=== PATIENT | male | born 1955 | race Caucasian/White ===

== ENCOUNTER → 2017-02-06 | Outpatient (REF) | payer OTHER | LOC: M SFHCPLAZ 13:50 | PROVIDERS: ATTEND Nurse Practitioner Adult Health | DX: Z00.00 Encounter for general adult medical examination without abnormal findings (principal); Z53.9 Procedure and treatment not carried out, unspecified reason ==

== ENCOUNTER → 2018-06-04 | Outpatient (CLI) | payer OTHER ==
[~2018-06-04] MED LIST: GASTROGRAFIN SOLUTION 30ML (Q9963) As Ordered; ISOVUE-370 76% 100ML VIAL (Q9967) As Ordered
== END ==
LOC: M RAD 12:46
DX: R19.00 Intra-abdominal and pelvic swelling, mass and lump, unspecified site (principal); R91.8 Other nonspecific abnormal finding of lung field; K57.30 Diverticulosis of large intestine without perforation or abscess without bleeding
CPT/HCPCS: Q9963

== ENCOUNTER → 2018-06-11 | Outpatient (REF) | payer OTHER ==
[2018-06-11 18:38] LABS: HEMOGLOBIN 13.6 g/dl (13.5-17.5); MEAN CORPUSCULAR HEMOGLOBIN 32.1 pg (27.0-33.0); MEAN CORPUSCULAR VOLUME 94.3 fl (80.0-96.0); PLATELET COUNT, AUTOMATED 194 10^3/uL (150-450); RED BLOOD COUNT 4.24 10^6/uL (4.30-6.10); RED CELL DISTRIBUTION WIDTH 12.9 % (11.5-14.5); WHITE BLOOD COUNT 6.7 10^3/uL (4.0-10.0)
[2018-06-11 18:42] LABS: ESTIMATED AVERAGE GLUCOSE 117 MG/DL (60-110); HEMOGLOBIN A1c 5.7 %
[2018-06-11 19:21] LABS: ALBUMIN 4.2 GM/DL (3.2-5.2); ALBUMIN/GLOBULIN RATIO 1.62 (1.00-1.93); ALKALINE PHOSPHATASE 88 U/L (45-117); ALT/SGPT 34 U/L (12-78); ANION GAP 8 MEQ/L (8-16); AST/SGOT 23 U/L (7-37); BILIRUBIN,TOTAL 0.7 MG/DL (0.2-1.0); BLOOD UREA NITROGEN 12 MG/DL (7-18); CARBON DIOXIDE LEVEL 29 MEQ/L (21-32); CHLORIDE LEVEL 104 MEQ/L (98-107); CHOLESTEROL LEVEL 151 MG/DL (<200); CHOLESTEROL RISK RATIO 3.682 (<5); CREATININE FOR GFR 0.91 MG/DL (0.70-1.30); GLOMERULAR FILTRATION RATE > 60.0 (>49); GLUCOSE, FASTING 81 MG/DL (70-100); HDL CHOLESTEROL 41 MG/DL (>40); LDL CHOLESTEROL 97 MG/DL (<100); NON-HDL-C 110 MG/DL; PSA SCREENING 0.74 NG/ML (< 4.0); SODIUM LEVEL 141 MEQ/L (136-145); TOTAL PROTEIN 6.8 GM/DL (6.4-8.2); TRIGLYCERIDES LEVEL 67 MG/DL (<150)
== END ==
LOC: M SFHCPLAZ 15:33
DX: I10 Essential (primary) hypertension (principal); Z83.3 Family history of diabetes mellitus; Z12.5 Encounter for screening for malignant neoplasm of prostate
CPT/HCPCS: 84443

== ENCOUNTER 2018-09-18 06:38 | Day surgery (SDC) | payer OTHER ==
[~2018-09-18] VITALS: Ht 167.6 cm; Wt 68.0 kg
[~2018-09-18 06:38] MED LIST changes: -GASTROGRAFIN SOLUTION 30ML (Q9963) As Ordered; -ISOVUE-370 76% 100ML VIAL (Q9967) As Ordered; +LOSA100T50 PO
[2018-09-18] MEDS ORDERED: PROPOFOL 200 MG/20 ML VIAL As Ordered ONE (07:02)
[2018-09-18] MEDS ORDERED: NS 1,000 ML IV ONE (07:30)
--- NOTE | 2018-09-18 08:30 | ROOR ---
Patient Name: Eusebio Branch Procedure Date: 09/18/2018 7:30 AM Date of : 1955 Age: 63 Room: [facility] Gender: Male Note Status: Finalized Procedure: Colonoscopy Indications: Screening for colorectal malignant neoplasm Providers: Cristobal Cantor MD Referring MD: Laura Sumner NP Requesting Provider: Medicines: Monitored Anesthesia Care Complications: No immediate complications. Procedure: Pre-Anesthesia Assessment: - Prior to the procedure, a History and Physical was performed, and patient medications and allergies were reviewed. The patient is competent. The risks and benefits of the procedure and the sedation options and risks were discussed with the patient. All questions were answered and informed consent was obtained. Patient identification and proposed procedure were verified by the physician, the nurse and the anesthesiologist in the procedure room. Mental Status Examination: alert and oriented. Airway Examination: normal oropharyngeal airway and neck mobility. Respiratory Examination: clear to auscultation. CV Examination: normal. Prophylactic Antibiotics: The patient does not require prophylactic antibiotics. Prior Anticoagulants: The patient has taken no previous anticoagulant or antiplatelet agents. ASA Grade Assessment: II - A patient with mild systemic disease. After reviewing the risks and benefits, the patient was deemed in satisfactory condition to undergo the procedure. The anesthesia plan was to use monitored anesthesia care (MAC). Immediately prior to administration of medications, the patient was re-assessed for adequacy to receive sedatives. The heart rate, respiratory rate, oxygen saturations, blood pressure, adequacy of pulmonary ventilation, and response to care were monitored throughout the procedure. The physical status of the patient was re-assessed after the procedure. The Colonoscope was introduced through the anus and advanced to the terminal ileum, with identification of the appendiceal orifice and IC valve. The colonoscopy was performed without difficulty. The patient tolerated the procedure well. The quality of the bowel preparation was good. The terminal ileum, ileocecal valve, appendiceal orifice, and rectum were photographed. Scope insertion time was 5 minutes. Scope withdrawal time was 20 minutes. The total duration of the procedure was 25 minutes. Findings: The perianal and digital rectal examinations were normal. The terminal ileum appeared normal. A 10 mm polyp was found in the descending colon. The polyp was sessile. The polyp was removed with a hot snare. Resection and retrieval were complete. Verification of patient identification for the specimen was done by the physician and nurse using the patient's name, date and medical record number. Estimated blood loss was minimal. Two pedunculated polyps were found in the recto-sigmoid colon. The polyps were 10 to 30 mm in size. These polyps were removed with a hot snare. Resection and retrieval were complete. To close a defect after polypectomy, five hemostatic clips were successfully placed. There was no bleeding at the end of the procedure. A few small-mouthed diverticula were found in the sigmoid colon. There was no evidence of diverticular bleeding. Non-bleeding external and internal hemorrhoids were found during retroflexion. The hemorrhoids were medium-sized. Impression: - The examined portion of the ileum was normal. - One 10 mm polyp in the descending colon, removed with a hot snare. Resected and retrieved. - Two 10 to 30 mm polyps at the recto-sigmoid colon, removed with a hot snare. Resected and retrieved. Clips were placed. - Moderate diverticulosis in the sigmoid colon. There was no evidence of diverticular bleeding. - Non-bleeding external and internal hemorrhoids. Recommendation: - Patient has a contact number available for emergencies. The signs and symptoms of potential delayed complications were discussed with the patient. Return to normal activities tomorrow. Written discharge instructions were provided to the patient. - Clear liquid diet for 1 day, then advance as tolerated to resume regular diet. - Continue present medications. - Await pathology results. - Repeat colonoscopy in 1 year for surveillance based on pathology results. - Return to GI clinic in 1 year. - Return to primary care physician. Cristobal Cantor MD Cristobal Cantor MD 09/18/2018 8:29:47 AM This report has been signed electronically. Number of Addenda: 0 Note Initiated On: 09/18/2018 7:30 AM Estimated Blood Loss: Estimated blood loss was minimal.
[2018-09-18 08:49] VITALS: BP 125/93
== END 2018-09-18 08:49 | disposition home or self-care (01) ==
LOC: M OPP 06:38
PROVIDERS: ATTEND Internal Medicine Gastroenterology
DX: Z12.11 Encounter for screening for malignant neoplasm of colon (principal); D12.4 Benign neoplasm of descending colon; D12.7 Benign neoplasm of rectosigmoid junction; K57.30 Diverticulosis of large intestine without perforation or abscess without bleeding; K64.8 Other hemorrhoids; R12 Heartburn; F17.210 Nicotine dependence, cigarettes, uncomplicated; I10 Essential (primary) hypertension; Z83.3 Family history of diabetes mellitus; Z80.1 Family history of malignant neoplasm of trachea, bronchus and lung; Z82.49 Family history of ischemic heart disease and other diseases of the circulatory system; Z79.899 Other long term (current) drug therapy

== ENCOUNTER → 2018-12-01 | Outpatient (CLI) | payer OTHER ==
--- NOTE | 2018-12-01 16:27 | REP ---
Low-dose noncontrast chest CT: History: Tobacco use. Lung cancer screening. Comparison chest x-ray April 10, 2010. CT findings: Preliminary digital base brander radiograph is unremarkable. There is a non solid 9 mm nodule in the right lower lobe posteriorly on page 68 of 100 in today's study. There is linear fibrosis in the lingula. No other abnormal pulmonary parenchymal opacity is seen. There are old healed rib fractures on the right. There is mild vascular calcification including in the left coronary artery. Impression: Lung RADS category 3 examination. Recommend 6-month follow-up CT study. Electronically Signed by Roque Loyola MD 12/02/2018 11:08 A
== END ==
LOC: M RAD 15:41
PROVIDERS: ATTEND Nurse Practitioner Adult Health
DX: Z12.2 Encounter for screening for malignant neoplasm of respiratory organs (principal); R91.8 Other nonspecific abnormal finding of lung field; Z72.0 Tobacco use

== ENCOUNTER → 2019-02-15 | Outpatient (REF) | payer MEDICAID, OTHER ==
[2019-02-15 13:15] LABS: ALBUMIN 3.8 GM/DL (3.2-5.2); ALT/SGPT 32 U/L (12-78); BILIRUBIN,TOTAL 0.4 MG/DL (0.2-1.0); BLOOD UREA NITROGEN 15 MG/DL (7-18); CALCIUM LEVEL 9.1 MG/DL (8.8-10.2); CARBON DIOXIDE LEVEL 31 MEQ/L (21-32); CHLORIDE LEVEL 105 MEQ/L (98-107); CREATININE FOR GFR 1.01 MG/DL (0.70-1.30); GLOMERULAR FILTRATION RATE > 60.0 (>49); GLUCOSE, FASTING 74 MG/DL (70-100); POTASSIUM SERUM 4.7 MEQ/L (3.5-5.1); SODIUM LEVEL 140 MEQ/L (136-145); TOTAL PROTEIN 7.3 GM/DL (6.4-8.2)
== END ==
LOC: M SFHCPLAZ 09:10
PROVIDERS: ATTEND Nurse Practitioner Adult Health
DX: I10 Essential (primary) hypertension (principal); Z83.3 Family history of diabetes mellitus

== ENCOUNTER → 2019-02-23 | Outpatient (CLI) | payer OTHER ==
--- NOTE | 2019-02-23 17:44 | REP ---
Clinical: New onset headaches . Comparison: None . Findings: The ventricles, sulci, and cisterns are normal in position and appearance. Pérez-white differentiation is maintained. No acute intracranial hemorrhage, mass/mass effect, pathology or trauma/injury. No evidence for acute infarction. No extra-axial fluid collection. Calvarium is intact. Paranasal sinuses and mastoid air cells are clear. Impression: Normal noncontrast head CT. No evidence for acute intracranial pathology or trauma/injury. Electronically Signed by Floyd Degroot MD 02/23/2019 05:35 P
== END ==
LOC: M RAD 17:18
PROVIDERS: ATTEND Nurse Practitioner Adult Health
DX: R51 Headache (principal); Z87.828 Personal history of other (healed) physical injury and trauma

== ENCOUNTER 2019-05-20 11:58 | Inpatient (IN) | payer OTHER ==
[~2019-05-20] VITALS: Ht 165.1 cm; Wt 73.6 kg
[2019-05-20] MEDS ORDERED: FLUO20CA20 PO (12:11)
[2019-05-20] MEDS ORDERED: BUPR150T3 PO (12:11)
[2019-05-20] MEDS ORDERED: ceFAZolin SOD 1 GM in D5W MINI-BAG PLUS 50 ML IV ONE (12:30)
[2019-05-20] MEDS ORDERED: ADACEL/BOOSTRIX VACCINE (DIPHTH/PERTUSS/ACELL/TETANUS)0.5ML SYR (90715) IM ONE (12:30)
[2019-05-20] MEDS ORDERED: MORPHINE 2 MG/ML 1ML VIAL (J2270) IV PRN (12:30)
[2019-05-20] MEDS ORDERED: NS 1,000 ML IV ONE (12:30)
[2019-05-20] MEDS ORDERED: ONDANSETRON 4MG/2ML VIAL (J2405) IV ONE (12:30)
[2019-05-20 12:47] LABS: BASO % 0.2 % (0.0-1.0); EOS # 0.2 10^3/uL (0.0-0.5); EOS % 1.6 % (0.0-3.0); HEMATOCRIT 38.3 % (42.0-52.0); HEMOGLOBIN 13.3 g/dl (13.5-17.5); LYMPH # 1.4 10^3/uL (1.5-5.0); LYMPH % 10.2 % (24.0-44.0); MEAN CORPUSCULAR HGB CONC 34.7 g/dl (32.0-36.5); MONO # 1.1 10^3/uL (0.0-0.8); MONO % 7.9 % (0.0-5.0); NEUTROPHILS # 11.2 10^3/uL (1.5-8.5); PLATELET COUNT, AUTOMATED 249 10^3/uL (150-450); RED BLOOD COUNT 4.03 10^6/uL (4.30-6.10); WHITE BLOOD COUNT 14.1 10^3/uL (4.0-10.0)
--- NOTE | 2019-05-20 13:34 | REP ---
Right knee four views: There are no comparisons. There is air within the soft tissues above the knee. I suspect some of this area is interarticular. There is is compatible with laceration. There are calcific densities superior to the patella which may represent a avulsion fractures or foreign bodies. This raises the possibility of a avulsion of the quadriceps tendon. No other fractures are identified. Mineralization is normal. There are no other calcifications or foreign bodies. Impression: Soft tissue and intra-articular air suggestive of laceration. Calcifications above the patella compatible with a avulsions, possibly avulsion of the quadriceps tendon. Electronically Signed by Sushil Spear MD 05/20/2019 01:24 P
[2019-05-20 13:38] LABS: ALBUMIN 3.4 GM/DL (3.2-5.2); BILIRUBIN,DIRECT 0.1 MG/DL (0.0-0.2); BILIRUBIN,TOTAL 0.5 MG/DL (0.2-1.0); TOTAL PROTEIN 5.8 GM/DL (6.4-8.2)
--- NOTE | 2019-05-20 13:57 | REP ---
CHEST, SINGLE VIEW: There is no evidence of acute infiltrate. No pleural effusion is seen. The heart is normal in size. The mediastinal silhouette is unremarkable. The visualized osseous structures are intact. There are old healed fractures of several right ribs. IMPRESSION: No acute pulmonary disease. Electronically Signed by Sushil Pérez MD 05/20/2019 05:39 P
--- NOTE | 2019-05-20 13:57 | REP ---
LEFT SHOULDER, THREE VIEWS: There is no evidence of an acute fracture, dislocation or intrinsic bone disease. IMPRESSION: No fracture or dislocation. Electronically Signed by Sushil Pérez MD 05/20/2019 05:39 P
--- NOTE | 2019-05-20 14:05 | REP ---
LEFT FEMUR, AP AND LATERAL: There is no evidence of an acute fracture, dislocation or intrinsic bone disease. IMPRESSION: No fracture or dislocation. Electronically Signed by Sushil Pérez MD 05/20/2019 05:39 P
[2019-05-20] MEDS ORDERED: LIDOCAINE 1% MDV 20ML VIAL As Ordered ONE (14:21)
--- NOTE | 2019-05-20 15:00 | REP ---
CT RIGHT KNEE: Axial CT right knee performed with sagittal and coronal reconstruction images. Comminuted focal fracture is noted of the peripheral anterior lateral femoral condyle. Multiple small fracture fragments are displaced superiorly. Tibia, fibula and patellar are intact. There is overlying soft tissue disruption with scattered air in the soft tissues. Mild air extends into the patellofemoral joint and suprapatellar bursa. There is mild fluid in these regions as well. There is no dislocation. Electronically Signed by Sushil Pérez MD 05/20/2019 05:42 P
[2019-05-20] MEDS ORDERED: LIDOCAINE 1% MDV 20ML VIAL IM ONE (15:15)
--- NOTE | 2019-05-20 16:21 | REP ---
ULTRASOUND LEFT THIGH SOFT TISSUES: Real-time sonographic evaluation of the left thigh soft tissues performed at a site of pain and swelling. No mass or fluid collection is seen at that location. Electronically Signed by Sushil Pérez MD 05/20/2019 05:54 P
[2019-05-20] MEDS ORDERED: BUPIVACAINE HCL 0.5% 30 ML VIAL As Ordered ONE (16:47)
[2019-05-20] MEDS ORDERED: MIDAZOLAM INJ 2 MG/2 ML VIAL (J2250) As Ordered ONE (17:24)
[2019-05-20] MEDS ORDERED: fentaNYL 100 MCG/2 ML INJECTION (J3010) As Ordered ONE ×2 (17:24→18:43)
[2019-05-20] MEDS ORDERED: ceFAZolin 2 GM/D5W 50 ML IV BAG (J0690 PER 500MG) As Ordered ONE (17:25)
[2019-05-20] MEDS ORDERED: propofoL 200 MG/20 ML VIAL As Ordered ONE (17:25)
[2019-05-20] MEDS ORDERED: LIDOCAINE 2% INJ 100 MG/5 ML SDV (FOR ANES.) As Ordered ONE (17:25)
[2019-05-20] MEDS ORDERED: SUGAMMADEX SODIUM 500 MG/5 ML VIAL (BRIDION) As Ordered ONE (17:34)
[2019-05-20] MEDS ORDERED: ROCURONIUM BROMIDE 50 MG/5 ML VIAL As Ordered ONE (17:34)
[2019-05-20] MEDS ORDERED: SUCCINYLCHOLINE 100 MG/5 ML SYRINGE (J0330) As Ordered ONE (17:34)
[2019-05-20] MEDS ORDERED: dexameTHASONE 4 MG/ML 1ML VIAL (J1100) As Ordered ONE (17:36)
[2019-05-20] MEDS ORDERED: ONDANSETRON 4MG/2ML VIAL (J2405) As Ordered ONE (17:36)
[2019-05-20] MEDS ORDERED: ACETAMINOPHEN 1000MG 100ML IV BTL (OFIRMEV) (J0131 PER 10MG) As Ordered ONE (18:43)
[2019-05-20] MEDS ORDERED: fentaNYL 100 MCG/2 ML INJECTION (J3010) IV PRN (20:00)
[2019-05-20] MEDS ORDERED: PERCOCET 5MG/325MG TAB PO PRN ×2 (20:00→20:45)
[2019-05-20] MEDS ORDERED: HYDROMORPHONE HCL 0.5 MG/ 0.5 ML SYRINGE (J1170 PER 1) IV PRN (20:00)
[2019-05-20] MEDS ORDERED: ONDANSETRON 4MG/2ML VIAL (J2405) IV PRN ×2 (20:00→20:45)
[2019-05-20] MEDS ORDERED: LR 1,000 ML IV SCH ×2 (20:00→20:45)
[2019-05-20] MEDS ORDERED: tiZANidine 4 MG TAB PO PRN (20:30)
[2019-05-20] MEDS ORDERED: MORPHINE 4 MG/ML 1ML VIAL/SYRINGE (J2270) IV PRN (20:45)
--- NOTE | 2019-05-20 21:40 | ECGEPIP ---
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
[2019-05-20 22:02] VITALS: BP 132/80
[2019-05-20 22:30] VITALS: BP 130/86
[2019-05-21 00:05] VITALS: BP 133/79
[2019-05-21] MEDS: ceFAZolin SOD 1 GM in D5W MINI-BAG PLUS 50 ML IV SCH ×4 (00:20→23:23)
[2019-05-21 00:58] VITALS: BP 143/93
[2019-05-21 02:31] VITALS: BP 142/84
[2019-05-21 07:15] VITALS: BP 124/70
[2019-05-21] MEDS: LOSARTAN 50 MG TAB PO SCH (08:13)
[2019-05-21] MEDS: ASPIRIN 325 MG TAB PO SCH (08:13)
[2019-05-21] MEDS: buPROPion **XL** TABLET 150MG (WELLBUTRIN XL) PO SCH (08:13)
[2019-05-21] MEDS: MIRALAX *UNIT DOSE* 17GM PACKET PO SCH (08:13)
[2019-05-21] MEDS: FLUoxetine 20 MG CAP PO SCH (08:13)
[2019-05-21] MEDS: MOM 30ML SUSPENSION UDC PO SCH (08:14)
--- NOTE | 2019-05-21 10:12 | RO ---
DATE OF PROCEDURE: 05/20/2019 PREOPERATIVE DIAGNOSIS: 1. Right knee medial arthrotomy. 2. Right knee distal femur osteochondral fractures. POSTOPERATIVE DIAGNOSIS: 1. Right knee medial arthrotomy. 2. Right knee distal femur osteochondral fractures. PROCEDURE: 1. Right knee irrigation and debridement including skin, subcutaneous tissue, deep fascia, synovium and bone. 2. Right knee loose body removal. SURGEON: Dr. Caden Bush. ANESTHESIA: General. IV FLUIDS: Lactated Ringer's estimate blood loss 100 mL. IMPLANTS: None. SPECIMEN: Loose bodies times 3. DRAINS: TIM bulb suction times one closure nylon. PROCEDURE: The patient was identified in preoperative holding area. The right leg was marked by myself. He received IV antibiotics in the emergency department for his traumatic arthrotomy and he is up-to-date on tetanus. The risks and benefits of surgery were discussed and written informed consent obtained. He was brought to the operating room, placed supine on a well-padded OR table. He received 2 grams IV cefazolin within 1 hour of incision. The right leg was then corrected after induction of general anesthesia well bony prominences were well padded. The right leg was prepped and draped in the normal sterile fashion with Betadine prep given this was a contaminated wound. Prior to incision time-out performed per hospital protocol. The wound was inspected and this was a transverse wound running from the anterolateral aspect of the knee joint occur proxy just along the proximal pole of patella and over to the medial joint line. This measured at least 8 cm. All skin edges had gravel and dirt embedded within them. I excised all skin edges with a 15 blade to remove devitalized and contaminated tissue. Hemostasis electrocautery. Some of the bursal tissue was also devitalized and had some gravel and that was sharply excised and all foreign body debris was removed with forceps. There was an obvious arthrotomy between the arthrotomy along the lateral aspect of the distal quad tendon. The arthrotomy itself was a between 2 and 3 cm. I then extended this distally just short of the patella so it does not destabilize the vastus lateralis. I then palpated multiple loose bodies. Total of three loose bodies were encountered all of them contained and all of them contained dirt and contamination imbedded within then. Two of the three fragments had a thin layer of bone approximately 1 mm and the overlying cartilage appeared confused. The largest fragment may have had 2-3 mm of bone but the overlying cartilage was also contaminated and also appeared quite confused. I felt that an attempt at open reduction internal fixation with either screws or chondral darts would have a high likelihood of failure and lead to increase the reoperation rate. I therefore elected to remove the loose pieces. The defect, the resulting defect is in the proximal lateral aspect of the trochlea does not approach the midline. There is mild crepitus with knee range of motion. I did perform knee examination under anesthesia were he had a grade 1 A Sangeetha negative posterior drawer stable to varus and valgus stress. After all contaminated tissue had been removed and all loose bodies have been removed. I then irrigated the joint with 9 liters of lactated Ringer's with cystoscopy tubing. I then placed a drain from the joint exiting out the distal lateral thigh. This was placed to bulb suction. The arthrotomy was closed with zero PDS monofilament suture and [id number] fashion. The arthrotomy was closed with the knee in 40 degrees of flexion to avoid postoperative stiffness. I then reirrigated after closure of the arthrotomy and then used 2-0 PDS for the subcuticular closure with excellent reapproximation of the wound edges. I should note there was a separate laceration also transverse 1 cm proximal to the primary laceration and that was also a centimeter in length. That was closed with horizontal mattress 3-0 nylon suture. The laceration was closed with 3-0 nylon in a horizontal mattress fashion. I then injected 30 mL of 0.5% Marcaine without epinephrine for local anesthetic. The knee was cleaned bulky sterile dressing applied. The drain was not sewn in. All counts correct times. COMPLICATIONS: None. DISPOSITION: The patient was extubated, transferred to PACU in stable condition. He will be weightbearing as tolerated with crutches. He will need 48 hours IV antibiotic prophylaxis. He will have full dose aspirin for 30 days for DVT prophylaxis. Drain will be removed in the afternoon on postoperative day 1.
[2019-05-21 14:25] VITALS: BP 122/68
[2019-05-21] MEDS: PERCOCET 5MG/325MG TAB PO PRN ×3 (14:49→23:22)
[2019-05-21 22:21] VITALS: BP 136/87
[2019-05-22] MEDS: PERCOCET 5MG/325MG TAB PO PRN (06:08)
[2019-05-22] MEDS ORDERED: PERC5TAB12 PO (06:42)
[2019-05-22] MEDS ORDERED: ASPI-1 PO (06:42)
[2019-05-22 06:53] VITALS: BP 118/70
[2019-05-22] MEDS: MIRALAX *UNIT DOSE* 17GM PACKET PO SCH (08:23)
[2019-05-22 08:24] VITALS: BP 118/70
[2019-05-22] MEDS: ceFAZolin SOD 1 GM in D5W MINI-BAG PLUS 50 ML IV SCH (08:24)
[2019-05-22] MEDS: FLUoxetine 20 MG CAP PO SCH (08:24)
[2019-05-22] MEDS: LOSARTAN 50 MG TAB PO SCH (08:24)
[2019-05-22] MEDS: MOM 30ML SUSPENSION UDC PO SCH (08:24)
[2019-05-22] MEDS: ASPIRIN 325 MG TAB PO SCH (08:24)
[2019-05-22] MEDS: buPROPion **XL** TABLET 150MG (WELLBUTRIN XL) PO SCH (08:24)
--- NOTE | 2019-05-23 07:11 | IPN ---
DATE: 05/22/2019 CHIEF COMPLAINT: Postoperative day #2 right knee arthrotomy, irrigation, debridement, removal of loose body. HISTORY OF PRESENT ILLNESS: This patient had a knee arthrotomy, removal loose body. He is weightbearing as tolerated. He is doing well. He is ambulating it sounds like safely with crutches. PHYSICAL EXAM: He is a well-appearing man in no acute distress. Figueroa bandages in and Gera-Spaulding (J-P) drain is still in situ. There is about 15 mL of sanguinous fluid there. Normal sensation throughout the foot. Foot is warm and well perfused, and he is able to wiggle his toes, dorsiflex and plantar flex the foot. ASSESSMENT AND PLAN: 63-year-old man. We will discontinue the J-P drain today at this point. Followup in the office with Dr. Bush. He is weightbearing with crutches. He seems to be safe for discharge home today barring any other issues. MTDLinda
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
--- NOTE | 2019-05-26 07:51 | DSES ---
DATE OF ADMISSION: 05/20/2019 DATE OF DISCHARGE: 05/22/2019 ATTENDING PHYSICIAN: Dr. Caden Bush ADMITTING DIAGNOSIS: Right knee distal femur osteochondral fractures. DISCHARGE DIAGNOSIS: Right knee distal femoral osteochondral fractures status post medial arthrotomy with irrigation and debridement and loose body removal. HISTORY: The patient is a 63-year-old male that had progressively worsening right knee pain and stiffness. He failed to improve with conservative measures. He continued to have symptoms with weightbearing activities and activities of daily living. He consented for an elective right knee arthrotomy, irrigation and debridement and loose body removal with Dr. Bush for his continued symptoms. OPERATION PERFORMED: 1. Right knee irrigation and debridement including skin, subcutaneous tissue, deep fascia, synovium and bone. 2. Right knee loose body removal. HOSPITAL COURSE: The patient underwent a right knee arthrotomy with irrigation and debridement and loose body removal under general anesthesia which was uneventful. His hospital course was without complication. He was discharged on oral pain medications and will resume his preoperative medications and diet. He did have 48 hours of IV prophylactic antibiotics prior to discharge and he will take aspirin for 30 days to prevent deep vein thrombosis (DVT). The patient will follow up in our office in 7-10 days for wound check and reevaluation. He will be weightbearing as tolerated with crutches. The patient will contact our office sooner if there is any increase in pain, redness, drainage, numbness or tingling in the extremity, fever greater than 101 degrees or any other concerns. Please see the medical record for additional details. MTDLinda
== END 2019-05-22 12:15 | disposition home or self-care (01) | DRG 313 ==
LOC: M ED 11:58 → EDBD 11:58 → M ED INP 16:48 → M MS5PR 20:50
PROVIDERS: ADMIT Orthopaedic Surgery; ATTEND Orthopaedic Surgery
PROC: 0QBD0ZZ Excision of Right Patella, Open Approach (ICD-10-PCS; 2019-05-20)
PROC: 0SBC0ZZ Excision of Right Knee Joint, Open Approach (ICD-10-PCS; 2019-05-20)
PROC: 0YBF0ZZ Excision of Right Knee Region, Open Approach (ICD-10-PCS; 2019-05-20)
PROC: 0JBN0ZZ Excision of Right Lower Leg Subcutaneous Tissue and Fascia, Open Approach (ICD-10-PCS; principal; 2019-05-20 14:59)
DX: S72.401B Unspecified fracture of lower end of right femur, initial encounter for open fracture type I or II (principal); S81.021A Laceration with foreign body, right knee, initial encounter; F17.200 Nicotine dependence, unspecified, uncomplicated; M93.961 Osteochondropathy, unspecified, right lower leg; Z79.899 Other long term (current) drug therapy; V23.9XXA Unspecified motorcycle rider injured in collision with car, pick-up truck or van in traffic accident, initial encounter

== ENCOUNTER 2019-06-30 09:41 | Outpatient (RCR) | payer MEDICAID, OTHER ==
[~2019-06-30 09:41] MED LIST changes: +ASPI-1 PO; +BUPR150T3 PO; +FLUO20CA8 PO; +PERC5TAB12 PO
== END 2019-07-01 ==
LOC: M PT 09:41
PROVIDERS: ATTEND Orthopaedic Surgery Sports Medicine
DX: Z47.89 Encounter for other orthopedic aftercare (principal); M23.41 Loose body in knee, right knee; S46.011D Strain of muscle(s) and tendon(s) of the rotator cuff of right shoulder, subsequent encounter; M25.519 Pain in unspecified shoulder; X58.XXXA Exposure to other specified factors, initial encounter; Y92.89 Other specified places as the place of occurrence of the external cause; Y93.89 Activity, other specified; Y99.8 Other external cause status

== ENCOUNTER 2019-07-23 07:25 | Outpatient (RCR) | payer MEDICAID, OTHER ==
[~2019-07-23 07:25] MED LIST changes: +FLUO20CA20 PO; -FLUO20CA8 PO
== END 2019-07-31 | disposition home or self-care (01) ==
LOC: M PT 07:25
PROVIDERS: ATTEND Orthopaedic Surgery Sports Medicine
DX: S82.001A Unspecified fracture of right patella, initial encounter for closed fracture (principal); X58.XXXA Exposure to other specified factors, initial encounter; Y92.9 Unspecified place or not applicable; Y93.9 Activity, unspecified; Y99.9 Unspecified external cause status

== ENCOUNTER 2019-08-23 08:30 | Outpatient (RCR) | payer MEDICAID, OTHER | END 2019-08-31 | disposition home or self-care (01) | LOC: M PT 08:30 | PROVIDERS: ATTEND Orthopaedic Surgery Sports Medicine | DX: Z47.89 Encounter for other orthopedic aftercare (principal); S82.001A Unspecified fracture of right patella, initial encounter for closed fracture; X58.XXXA Exposure to other specified factors, initial encounter; Y92.9 Unspecified place or not applicable; Y93.9 Activity, unspecified; Y99.9 Unspecified external cause status ==

== ENCOUNTER 2019-10-04 08:01 | Day surgery (SDC) | payer OTHER ==
[~2019-10-04] VITALS: Ht 160 cm; Wt 71.2 kg
[~2019-10-04 08:01] MED LIST changes: +LIDOCAINE 2% INJ 100 MG/5 ML SDV (FOR ANES.) As Ordered ONE; +NS 1,000 ML IV ONE; +propofoL 200 MG/20 ML VIAL As Ordered ONE
[2019-10-04 11:30] VITALS: BP 147/95
--- NOTE | 2019-10-04 11:32 | ROOR ---
Patient Name: Eusebio Frederick Procedure Date: 10/04/2019 10:21 AM Date of : 1955 Age: 64 Room: [facility] Gender: Male Note Status: Finalized Procedure: Colonoscopy Indications: High risk colon cancer surveillance: Personal history of colonic polyps Providers: Cristobal Cantor MD Referring MD: Laura GONZALEZ NP Requesting Provider: Medicines: Monitored Anesthesia Care Complications: No immediate complications. Procedure: Pre-Anesthesia Assessment: - Prior to the procedure, a History and Physical was performed, and patient medications and allergies were reviewed. The patient is competent. The risks and benefits of the procedure and the sedation options and risks were discussed with the patient. All questions were answered and informed consent was obtained. Patient identification and proposed procedure were verified by the physician, the nurse and the anesthesiologist in the procedure room. Mental Status Examination: alert and oriented. Airway Examination: normal oropharyngeal airway and neck mobility. Respiratory Examination: clear to auscultation. CV Examination: normal. Prophylactic Antibiotics: The patient does not require prophylactic antibiotics. Prior Anticoagulants: The patient has taken no previous anticoagulant or antiplatelet agents. ASA Grade Assessment: II - A patient with mild systemic disease. After reviewing the risks and benefits, the patient was deemed in satisfactory condition to undergo the procedure. The anesthesia plan was to use monitored anesthesia care (MAC). Immediately prior to administration of medications, the patient was re-assessed for adequacy to receive sedatives. The heart rate, respiratory rate, oxygen saturations, blood pressure, adequacy of pulmonary ventilation, and response to care were monitored throughout the procedure. The physical status of the patient was re-assessed after the procedure. The Colonoscope was introduced through the anus and advanced to the terminal ileum, with identification of the appendiceal orifice and IC valve. The colonoscopy was performed without difficulty. The patient tolerated the procedure well. The quality of the bowel preparation was good. The terminal ileum, ileocecal valve, appendiceal orifice, and rectum were photographed. Scope insertion time was 2 minutes. Scope withdrawal time was 10 minutes. The total duration of the procedure was 14 minutes. Findings: The perianal and digital rectal examinations were normal. The terminal ileum appeared normal. Three sessile polyps were found in the transverse colon and ascending colon. The polyps were 5 to 8 mm in size. These polyps were removed with a cold snare. Resection and retrieval were complete. Verification of patient identification for the specimen was done by the physician and nurse using the patient's name, date and medical record number. Estimated blood loss was minimal. Multiple small-mouthed diverticula were found in the sigmoid colon. There was no evidence of diverticular bleeding. Non-bleeding external and internal hemorrhoids were found during retroflexion. The hemorrhoids were medium-sized. Impression: - The examined portion of the ileum was normal. - Three 5 to 8 mm polyps in the transverse colon and in the ascending colon, removed with a cold snare. Resected and retrieved. - Mild diverticulosis in the sigmoid colon. There was no evidence of diverticular bleeding. - Non-bleeding external and internal hemorrhoids. Recommendation: - Patient has a contact number available for emergencies. The signs and symptoms of potential delayed complications were discussed with the patient. Return to normal activities tomorrow. Written discharge instructions were provided to the patient. - High fiber diet. - Continue present medications. - Preparation H ointment: Apply externally daily for 5 days. - Await pathology results. - Repeat colonoscopy in 3 - 5 years for surveillance based on pathology results and due to personal history of colon polyps in past Colonoscopy. - Telephone GI clinic for pathology results in 2 weeks. - Return to primary care physician. Cristobal Cantor MD Cristobal Cantor MD 10/04/2019 11:31:49 AM Electronically signed by Cristobal Cantor MD Number of Addenda: 0 Note Initiated On: 10/04/2019 10:21 AM Estimated Blood Loss: Estimated blood loss was minimal.
== END 2019-10-04 11:45 | disposition home or self-care (01) ==
LOC: M OPP 08:01
PROVIDERS: ATTEND Internal Medicine Gastroenterology
DX: Z86.010 Personal history of colon polyps (principal); Z09 Encounter for follow-up examination after completed treatment for conditions other than malignant neoplasm; K64.8 Other hemorrhoids; D12.3 Benign neoplasm of transverse colon; D12.2 Benign neoplasm of ascending colon; Z79.899 Other long term (current) drug therapy; Z87.891 Personal history of nicotine dependence

== ENCOUNTER → 2020-01-20 | Outpatient (REF) | payer OTHER ==
[~2020-01-20] MED LIST changes: -LIDOCAINE 2% INJ 100 MG/5 ML SDV (FOR ANES.) As Ordered ONE; -NS 1,000 ML IV ONE; -propofoL 200 MG/20 ML VIAL As Ordered ONE
[2020-01-20 18:43] LABS: BASO % 0.3 % (0.0-1.0); EOS # 0.3 10^3/uL (0.0-0.5); EOS % 4.5 % (0.0-3.0); HEMATOCRIT 44.4 % (42.0-52.0); HEMOGLOBIN 15.4 g/dl (13.5-17.5); LYMPH # 1.4 10^3/uL (1.5-5.0); LYMPH % 20.8 % (24.0-44.0); MEAN CORPUSCULAR HEMOGLOBIN 32.6 pg (27.0-33.0); MEAN CORPUSCULAR HGB CONC 34.7 g/dl (32.0-36.5); MEAN CORPUSCULAR VOLUME 93.9 fl (80.0-96.0); MONO % 14.5 % (0.0-5.0); NEUTROPHILS # 3.9 10^3/uL (1.5-8.5); NEUTROPHILS % 59.3 % (36.0-66.0); PLATELET COUNT, AUTOMATED 258 10^3/uL (150-450); RED BLOOD COUNT 4.73 10^6/uL (4.30-6.10); WHITE BLOOD COUNT 6.6 10^3/uL (4.0-10.0)
[2020-01-20 18:48] LABS: BLOOD UREA NITROGEN 15 MG/DL (7-18); CARBON DIOXIDE LEVEL 30 MEQ/L (21-32); CHLORIDE LEVEL 106 MEQ/L (98-107); CREATININE FOR GFR 1.14 MG/DL (0.70-1.30); GLOMERULAR FILTRATION RATE > 60.0 (>49); GLUCOSE, FASTING 86 MG/DL (70-100); POTASSIUM SERUM 4.8 MEQ/L (3.5-5.1); SODIUM LEVEL 142 MEQ/L (136-145)
[2020-01-20 18:49] LABS: ALBUMIN 3.9 GM/DL (3.2-5.2); ALT/SGPT 43 U/L (12-78); BILIRUBIN,TOTAL 0.4 MG/DL (0.2-1.0); CALCIUM LEVEL 8.9 MG/DL (8.8-10.2); TOTAL PROTEIN 7.2 GM/DL (6.4-8.2)
== END ==
LOC: M PLALAB 15:49
PROVIDERS: ATTEND Physician Assistant
DX: R42 Dizziness and giddiness (principal)

== ENCOUNTER → 2020-12-14 | Outpatient (CLI) | payer OTHER ==
[~2020-12-14] MED LIST changes: +BUPR150T12 PO; -BUPR150T3 PO
--- NOTE | 2020-12-15 08:59 | REP ---
INDICATION: LUNG NODULE COMPARISON: 12/01/2018 TECHNIQUE: Axial noncontrast images from the thoracic inlet to the upper abdomen with coronal and sagittal reformations. This CT examination was performed using the following dose reduction techniques: Automated exposure control, adjustment of mA and/or kv according to the patient's size, and use of iterative reconstruction technique. FINDINGS: Bilateral lung roman are well aerated and demonstrate very minimal scattered chronic changes. A 9 mm non solid ground-glass nodular density in the periphery of the right lower lobe remains stable. No new acute significant consolidation, nodule or mass lesion. No pleural effusion. No pneumothorax. No axillary, hilar, or mediastinal adenopathy. The mediastinum demonstrates relatively normal stable appearance to the thoracic aorta, pulmonary vasculature, and heart/pericardium with mild atherosclerotic changes again noted. Surrounding musculoskeletal structures without acute osseous abnormality. Limited upper abdomen demonstrates normal bilateral adrenal glands and evidence for prior cholecystectomy. IMPRESSION: Stable 9 mm non solid ground-glass nodular density in the right lower lobe. No acute mediastinal or pleuroparenchymal process appreciated. <Electronically signed by Floyd Degroot > 12/15/20 [id number]
== END ==
LOC: M RAD 13:54
PROVIDERS: ATTEND Nurse Practitioner Adult Health
DX: R91.1 Solitary pulmonary nodule (principal)

== ENCOUNTER → 2021-05-25 | Outpatient (CLI) | payer OTHER ==
--- NOTE | 2021-05-25 10:34 | REP ---
INDICATION: TESTIS NODULE. COMPARISON: None. TECHNIQUE: Real-time sonographic evaluation of scrotum and contents performed. FINDINGS: The testicles are normal in size and echotexture, right testicle measuring 4.1 x 2.4 x 3.5 cm and left testicle 4.6 x 2.1 x 3.4 cm. There is no testicular mass or torsion, blood flow is seen in each testicle with duplex Doppler evaluation. A simple cyst in the head of the right epididymis measures 1.1 cm in diameter and appears to correspond to the reported palpable abnormality on the right. There is an appendix testes on the right. There is a simple cyst in the head of the left epididymis 4 mm in diameter. IMPRESSION: No testicular mass or torsion. The palpable lump on the right appears to correspond to a 1.1 cm cyst in the head of the right epididymis. Also noted is a 4 mm cyst in the head of left epididymis. <Electronically signed by Sushil Pérez > 05/25/21 [id number]
== END ==
LOC: M RAD 09:47
PROVIDERS: ATTEND Nurse Practitioner Adult Health
DX: N50.89 Other specified disorders of the male genital organs (principal); N50.3 Cyst of epididymis

== ENCOUNTER → 2021-12-17 | Outpatient (CLI) | payer MEDICARE ==
[~2021-12-17] MED LIST changes: +FLUO-96 PO; -FLUO20CA20 PO; +LOSA100T45 PO; -LOSA100T50 PO
== END ==
LOC: M RAD 09:06
PROVIDERS: ATTEND Nurse Practitioner Adult Health
DX: R91.1 Solitary pulmonary nodule (principal); I70.0 Atherosclerosis of aorta; I25.10 Atherosclerotic heart disease of native coronary artery without angina pectoris; Z87.81 Personal history of (healed) traumatic fracture

== ENCOUNTER → 2022-05-15 | Outpatient (CLI) | payer MEDICARE ==
[2022-05-15 15:05] LABS: HEMOGLOBIN A1c 5.6 %
[2022-05-15 15:12] LABS: ALBUMIN 4.2 GM/DL (3.2-5.2); ALT/SGPT 46 U/L (12-78); BILIRUBIN,TOTAL 0.5 MG/DL (0.2-1.0); BLOOD UREA NITROGEN 15 MG/DL (7-18); CALCIUM LEVEL 9.2 MG/DL (8.8-10.2); CARBON DIOXIDE LEVEL 29 MEQ/L (21-32); CHLORIDE LEVEL 107 MEQ/L (98-107); CHOLESTEROL LEVEL 183 MG/DL (<200); CHOLESTEROL RISK RATIO 4.815 (<5); CREATININE FOR GFR 0.95 MG/DL (0.70-1.30); GLOMERULAR FILTRATION RATE > 60.0 (>49); GLUCOSE, FASTING 75 MG/DL (70-100); HDL CHOLESTEROL 38 MG/DL (>40); LDL CHOLESTEROL 110 MG/DL (<100); NON-HDL-C 145 MG/DL; POTASSIUM SERUM 4.9 MEQ/L (3.5-5.1); SODIUM LEVEL 140 MEQ/L (136-145); TOTAL PROTEIN 7.4 GM/DL (6.4-8.2); TRIGLYCERIDES LEVEL 177 MG/DL (<150)
== END ==
LOC: M PLALAB 11:18
PROVIDERS: ATTEND Nurse Practitioner Adult Health
DX: Z12.5 Encounter for screening for malignant neoplasm of prostate (principal); R73.9 Hyperglycemia, unspecified; I10 Essential (primary) hypertension; Z13.220 Encounter for screening for lipoid disorders
CPT/HCPCS: 36415; 80053; 80061; 83036; G0103

== ENCOUNTER → 2022-06-05 | Outpatient (CLI) | payer MEDICARE | LOC: M RAD 07:31 | PROVIDERS: ATTEND Nurse Practitioner Adult Health | DX: R91.1 Solitary pulmonary nodule (principal) ==

== ENCOUNTER → 2023-06-30 | Outpatient (CLI) | payer MEDICARE, OTHER ==
[~2023-06-30] MED LIST changes: -LOSA100T45 PO; +LOSA100T46 PO
[2023-06-30 11:07] LABS: ALBUMIN 4.3 G/DL (3.2-5.2); ALKALINE PHOSPHATASE 108 U/L (46-116); ALT/SGPT 47 U/L (7.0-40); AST/SGOT 25 U/L (<34); BILIRUBIN,TOTAL 0.6 MG/DL (0.3-1.2); BLOOD UREA NITROGEN 14 MG/DL (9-23); CALCIUM LEVEL 9.5 MG/DL (8.3-10.6); CARBON DIOXIDE LEVEL 30 MMOL/L (20-31); CHLORIDE LEVEL 103 MMOL/L (98-107); CHOLESTEROL LEVEL 188 MG/DL (<200); CHOLESTEROL RISK RATIO 5.08 (<5); CREATININE FOR GFR 0.97 MG/DL (0.70-1.30); GLOMERULAR FILTRATION RATE > 60.0 (>49); GLUCOSE, FASTING 101 MG/DL (74-106); LDL CHOLESTEROL 112.4 MG/DL (<100); POTASSIUM SERUM 4.9 MMOL/L (3.5-5.1); SODIUM LEVEL 140 MMOL/L (136-145); TOTAL PROTEIN 7.3 G/DL (5.7-8.2); TRIGLYCERIDES LEVEL 193 MG/DL (<150)
== END ==
LOC: M PLALAB 08:31
PROVIDERS: ATTEND Nurse Practitioner Adult Health
DX: R73.9 Hyperglycemia, unspecified (principal); I10 Essential (primary) hypertension; Z13.220 Encounter for screening for lipoid disorders; Z12.5 Encounter for screening for malignant neoplasm of prostate

== ENCOUNTER → 2024-07-12 | Outpatient (CLI) | payer MEDICARE, OTHER ==
[2024-07-12 13:14] LABS: PSA SCREENING 0.81 NG/ML (< 4.00)
[2024-07-12 13:17] LABS: ALBUMIN 4.2 G/DL (3.2-5.2); ALKALINE PHOSPHATASE 96 U/L (40-129); ALT/SGPT 47 U/L (7.0-40); AST/SGOT 22 U/L (<34); BILIRUBIN,TOTAL 0.6 MG/DL (0.3-1.2); BLOOD UREA NITROGEN 17 MG/DL (9-23); CALCIUM LEVEL 9.6 MG/DL (8.3-10.6); CARBON DIOXIDE LEVEL 28 MMOL/L (20-31); CHLORIDE LEVEL 109 MMOL/L (98-107); CREATININE FOR GFR 0.97 MG/DL (0.70-1.30); GLOMERULAR FILTRATION RATE > 60.0 (>49); GLUCOSE, FASTING 73 MG/DL (74-106); POTASSIUM SERUM 4.8 MMOL/L (3.5-5.1); SODIUM LEVEL 142 MMOL/L (136-145); TOTAL PROTEIN 7.2 G/DL (5.7-8.2)
== END ==
LOC: M PLALAB 10:28
PROVIDERS: ATTEND Nurse Practitioner Adult Health
DX: I10 Essential (primary) hypertension (principal); Z12.5 Encounter for screening for malignant neoplasm of prostate
CPT/HCPCS: 36415; 80053; G0103

== ENCOUNTER → 2024-09-07 | Outpatient (CLI) | payer MEDICARE, OTHER | LOC: M RAD 15:01 | PROVIDERS: ATTEND Nurse Practitioner Adult Health | DX: Z12.2 Encounter for screening for malignant neoplasm of respiratory organs (principal); Z87.891 Personal history of nicotine dependence; I70.0 Atherosclerosis of aorta; I25.10 Atherosclerotic heart disease of native coronary artery without angina pectoris; R91.8 Other nonspecific abnormal finding of lung field ==